=== PATIENT | male | born 1955 | race Caucasian/White ===

== ENCOUNTER 2023-02-09 09:14 | Emergency (ER) | payer MEDICARE, SELFPAY ==
--- NOTE | 2023-02-09 09:23 | ED.URI ---
HPI - URI/Sore Throat General Chief Complaint: Upper Respiratory Infection Stated Complaint: cough,sorethroat Time Seen by Provider: 02/09/23 09:23 Source: patient Mode of arrival: ambulatory Limitations: no limitations History of Present Illness HPI Narrative: Jose is a 67-year-old male patient presenting to the clinic today with complaints of possible fever, cough, nasal congestion, and sore throat x3 days. He reports he felt feverish yesterday and sweated a lot last night at the hotel room. He is traveling from [place]. Denies any known exposure to anyone with COVID, flu, or strep. Denies any chest pain or shortness of breath. MD elicited complaint: sore throat and nasal congestion Related Data Home Medications Medication Instructions Recorded Confirmed atorvastatin 80 mg tablet 80 mg DIRECTED 02/09/23 02/09/23 empagliflozin 25 mg tablet 25 mg DIRECTED 02/09/23 02/09/23 (Jardiance) ezetimibe 10 mg tablet 10 mg DIRECTED 02/09/23 02/09/23 fenofibrate nanocrystallized 145 45 mg PO DIRECTED 02/09/23 02/09/23 mg tablet lisinopril 40 mg tablet 40 mg DIRECTED 02/09/23 02/09/23 metoprolol succinate 100 mg 100 mg PO DIRECTED 02/09/23 02/09/23 tablet,extended release 24 hr omega-3 acid ethyl esters 1 gram 1 cap PO DIRECTED 02/09/23 02/09/23 capsule semaglutide 1 mg/dose (4 mg/3 mL) 1 mg subcut DIRECTED 02/09/23 02/09/23 subcutaneous pen injector (Ozempic) Allergies Allergy/AdvReac Type Severity Reaction Status Date / Time No Known Allergies Allergy Verified 02/09/23 09:40 Review of Systems Review of Systems: Pertinent positives per HPI. Patient denies any rash, headache, visual changes, dizziness, shortness of breath, chest pain, palpitations, nausea, vomiting, diarrhea, constipation, abdominal pain, or any urinary issues. PMFSH Comments At the time of my signature, I reviewed and agree with the nursing past medical, surgical, social, and family history. There is no relevant family history pertinent to the patient complaint. Exam Narrative: General: Well-developed, well nourished, in no apparent distress Head: Normocephalic, atraumatic Eyes: Pupils equally round and reactive to light bilaterally, EOM intact, sclera and conjunctive clear, no discharge, lids normal Ears: TMs intact and clear, ear canals clear, no drainage, grossly hearing normal. Nose: Nares patent, no discharge, no inflammation, no sinus tenderness. Mouth: Oral pharynx without lesions or masses, good dentition, MMM. Neck: Supple, trachea midline, no enlargement of anterior or posterior cervical nodes, no thyroid masses or goiter palpable. Cardio: Regular rate and rhythm, s1 and s2 normal, no murmur appreciated. Resp: Clear to auscultation bilaterally, no rhonchi, rales, wheezing or rubs Course Course Emergency Course: Portions of this record may have been created with voice recognition software. Level of Care: Express Care Visit Vital Signs Vital signs: Vital signs reviewed MDM - URI/Sore Throat MDM Narrative Medical decision making narrative: At the time of visit patient is resting comfortably on the exam table. Strep and influenza testing was negative. COVID test was positive. Patient denies any chest pain or shortness of breath. Patient is nontoxic appearing. Oxygen saturations 99% on room and he is afebrile at this time. Patient takes cholesterol medicine which interacts with Paxlovid. Symptoms appear to be mild. Supportive measures were discussed with the patient he voiced understanding discharge instructions and agrees to treatment plan. Return precautions were reviewed Differential Diagnosis Differential diagnosis: Likely upper respiratory infection, otitis media, sinusitis, viral infection, bronchitis, influenza, pharyngitis and other (COVID) Discharge Plan Discharge Clinical Impression: COVID-19 Patient Disposition: Home, Self-Care Condition: Stable Instruc
[2023-02-09 09:34] VITALS: BP 110/66; PULSE 89; RESP 18; TEMP 36.5; O2SAT 99
== END 2023-02-09 09:58 | disposition home or self-care (01) ==
PROVIDERS: Emergency Provider Nurse Practitioner Family
DX: U07.1 COVID-19 (principal); E78.00 Pure hypercholesterolemia, unspecified; I10 Essential (primary) hypertension; I25.2 Old myocardial infarction; G47.30 Sleep apnea, unspecified; E11.9 Type 2 diabetes mellitus without complications
CPT/HCPCS: 87081; 87426; 87804; 87880; 99203; C9803; G0463